=== PATIENT | female | born 1935 | race Two or more races ===

== ENCOUNTER 2022-10-13 10:00 | Inpatient (IN) | payer OTHER ==
[~2022-10-13] VITALS: Ht 139.7 cm; Wt 40.4 kg
[2022-10-13] MEDS ORDERED: METOPR PO (14:40)
[2022-10-13] MEDS ORDERED: VASOTEC20 M1 PO (14:40)
[2022-10-13] MEDS ORDERED: WAFARIN (14:41)
[2022-10-13] MEDS ORDERED: SIMVASTATIN80 MG PO (14:41)
== END 2022-10-18 17:19 | disposition home or self-care (01) | DRG 334 ==
LOC: ADM 10:00 → SURH 10-17 07:00 → EDSTATUS 10-17 10:00 → CIR.AMB 10-17 10:00 → SURH 10-17 10:00 → O/R 10-17 15:38 → SURH 10-17 15:38
PROVIDERS: ADMIT Colon & Rectal Surgery; ATTEND Colon & Rectal Surgery
PROC: 0DBNFZZ Excision of Sigmoid Colon, Via Natural or Artificial Opening With Percutaneous Endoscopic Assistance (ICD-10-PCS; 2022-10-17)
PROC: 0DBP0ZZ Excision of Rectum, Open Approach (ICD-10-PCS; principal; 2022-10-17 07:00)
DX: K62.3 Rectal prolapse (principal); Z20.822 Contact with and (suspected) exposure to COVID-19

== ENCOUNTER 2022-10-15 07:26 | Day surgery (SDC) | payer OTHER ==
[~2022-10-15 07:26] MED LIST: METOPR PO; SIMVASTATIN80 MG PO; VASOTEC20 M1 PO; WAFARIN
== END 2022-10-15 13:30 | disposition home or self-care (01) ==
LOC: AMB-ENDOS 07:26
PROVIDERS: ATTEND Colon & Rectal Surgery
DX: K62.3 Rectal prolapse (principal); K64.8 Other hemorrhoids; Z20.822 Contact with and (suspected) exposure to COVID-19

== ENCOUNTER 2023-03-11 12:30 | Inpatient (IN) | payer OTHER ==
[~2023-03-11] VITALS: Ht 134.6 cm; Wt 40.8 kg
[2023-03-16] MEDS ORDERED: METOPROLOL SUCC50 MG (07:56)
[2023-03-16] MEDS ORDERED: JANTOVEN6 MG (07:56)
== END 2023-03-17 14:45 | disposition home or self-care (01) | DRG 331 ==
LOC: SURH 03-16 06:18 → O/R 03-16 06:18 → SURG 03-16 09:00 → SURH 03-16 11:50 → SURG 03-16 12:30 → SURH 03-17 14:45
PROVIDERS: ADMIT Colon & Rectal Surgery; ATTEND Colon & Rectal Surgery
PROC: 0DBP0ZZ Excision of Rectum, Open Approach (ICD-10-PCS; 2023-03-16)
PROC: 0DUR0JZ Supplement Anal Sphincter with Synthetic Substitute, Open Approach (ICD-10-PCS; 2023-03-16)
PROC: 0DBN0ZZ Excision of Sigmoid Colon, Open Approach (ICD-10-PCS; principal; 2023-03-16 09:00)
DX: K62.3 Rectal prolapse (principal); Z20.822 Contact with and (suspected) exposure to COVID-19; R15.9 Full incontinence of feces